=== PATIENT | male | born 1975 ===

== ENCOUNTER 2017-06-27 15:03 | Inpatient (IN) | payer OTHER ==
[~2017-06-27] VITALS: Ht 165.1 cm; Wt 90.7 kg
[~2017-06-27 15:03] MED LIST: LISINOPRIL2.5 MG; PERCOCET 5/3251 TAB PO; SMZ-TMP DS 800-1 TAB PO; TAMS0.4C PO; URETRON DS1 TAB PO
== END 2017-06-29 08:44 | disposition home or self-care (01) | DRG 699 ==
LOC: ER 15:03 → SEC-K 20:37 → SURG 06-28 18:33
PROVIDERS: Urology
PROC: BW21ZZZ Computerized Tomography (CT Scan) of Abdomen and Pelvis (ICD-10-PCS; 2017-06-27)
PROC: BT14ZZZ Fluoroscopy of Kidneys, Ureters and Bladder (ICD-10-PCS; 2017-06-28)
PROC: 0TJ98ZZ Inspection of Ureter, Via Natural or Artificial Opening Endoscopic (ICD-10-PCS; 2017-06-28)
PROC: 0TCB8ZZ Extirpation of Matter from Bladder, Via Natural or Artificial Opening Endoscopic (ICD-10-PCS; principal; 2017-06-28 21:15)
DX: N32.89 Other specified disorders of bladder (principal); N39.0 Urinary tract infection, site not specified; R33.8 Other retention of urine; R31.0 Gross hematuria

== ENCOUNTER 2017-08-02 10:28 | Outpatient (CLI) | payer OTHER | END 2017-08-02 10:31 | disposition home or self-care (01) | LOC: LAB 10:28 | DX: D68.8 Other specified coagulation defects (principal); N40.1 Benign prostatic hyperplasia with lower urinary tract symptoms; I10 Essential (primary) hypertension; N02.8 Recurrent and persistent hematuria with other morphologic changes; D50.0 Iron deficiency anemia secondary to blood loss (chronic); D51.8 Other vitamin B12 deficiency anemias ==

== ENCOUNTER 2017-08-31 11:14 | Outpatient (CLI) | payer OTHER | END 2017-08-31 17:15 | disposition home or self-care (01) | LOC: LAB 11:14 | DX: R31.0 Gross hematuria (principal); N40.1 Benign prostatic hyperplasia with lower urinary tract symptoms; R97.20 Elevated prostate specific antigen [PSA] ==

== ENCOUNTER 2017-08-31 14:09 | Outpatient (CLI) | payer OTHER | END 2017-08-31 14:15 | disposition home or self-care (01) | LOC: LAB 14:09 | DX: D68.8 Other specified coagulation defects (principal); D50.0 Iron deficiency anemia secondary to blood loss (chronic); N40.1 Benign prostatic hyperplasia with lower urinary tract symptoms; I10 Essential (primary) hypertension; N02.8 Recurrent and persistent hematuria with other morphologic changes; E56.1 Deficiency of vitamin K; D50.8 Other iron deficiency anemias; D51.8 Other vitamin B12 deficiency anemias; E03.8 Other specified hypothyroidism; D68.0 Von Willebrand disease ==

== ENCOUNTER 2018-02-11 11:11 | Outpatient (CLI) | payer OTHER | END 2018-02-11 11:13 | disposition home or self-care (01) | LOC: LAB 11:11 | DX: D51.1 Vitamin B12 deficiency anemia due to selective vitamin B12 malabsorption with proteinuria (principal); D68.0 Von Willebrand disease; D51.3 Other dietary vitamin B12 deficiency anemia; D50.0 Iron deficiency anemia secondary to blood loss (chronic); E56.1 Deficiency of vitamin K; N40.1 Benign prostatic hyperplasia with lower urinary tract symptoms; I10 Essential (primary) hypertension; N02.8 Recurrent and persistent hematuria with other morphologic changes; D50.8 Other iron deficiency anemias; D51.8 Other vitamin B12 deficiency anemias; D68.8 Other specified coagulation defects; R97.20 Elevated prostate specific antigen [PSA] ==

== ENCOUNTER 2018-06-24 09:51 | Outpatient (CLI) | payer OTHER | END 2018-06-24 17:37 | disposition home or self-care (01) | LOC: LAB 09:51 | DX: D51.1 Vitamin B12 deficiency anemia due to selective vitamin B12 malabsorption with proteinuria (principal); D68.0 Von Willebrand disease; D51.3 Other dietary vitamin B12 deficiency anemia; D50.0 Iron deficiency anemia secondary to blood loss (chronic); E56.1 Deficiency of vitamin K; N40.1 Benign prostatic hyperplasia with lower urinary tract symptoms; I10 Essential (primary) hypertension; N02.8 Recurrent and persistent hematuria with other morphologic changes; D50.8 Other iron deficiency anemias; D51.8 Other vitamin B12 deficiency anemias; D68.8 Other specified coagulation defects; R79.1 Abnormal coagulation profile ==

== ENCOUNTER 2018-08-01 09:27 | Outpatient (CLI) | payer OTHER | END 2018-08-01 12:23 | disposition home or self-care (01) | LOC: SONOGRAMA 09:27 | DX: R31.0 Gross hematuria (principal); N40.1 Benign prostatic hyperplasia with lower urinary tract symptoms ==

== ENCOUNTER 2019-09-15 10:34 | Outpatient (CLI) | payer OTHER | END 2019-09-15 10:52 | disposition home or self-care (01) | LOC: SONOGRAMA 10:34 | DX: R31.0 Gross hematuria (principal); N40.1 Benign prostatic hyperplasia with lower urinary tract symptoms ==

== ENCOUNTER 2021-11-24 14:06 | Outpatient (CLI) | payer OTHER | END 2021-11-24 14:21 | disposition home or self-care (01) | LOC: MRI 14:06 | DX: M25.561 Pain in right knee (principal); M67.461 Ganglion, right knee | CPT/HCPCS: 73718 ==

== ENCOUNTER 2021-11-29 07:11 | Outpatient (CLI) | payer OTHER | END 2021-11-29 07:12 | disposition home or self-care (01) | LOC: LAB 07:11 | PROVIDERS: ATTEND Internal Medicine | DX: D68.0 Von Willebrand disease (principal); D66 Hereditary factor VIII deficiency ==

== ENCOUNTER 2022-12-30 09:37 | Outpatient (CLI) | payer OTHER | END 2022-12-30 09:38 | disposition home or self-care (01) | LOC: LAB 09:37 | PROVIDERS: ATTEND Internal Medicine | DX: D66 Hereditary factor VIII deficiency (principal); E55.9 Vitamin D deficiency, unspecified ==

== ENCOUNTER 2023-02-08 14:50 | Outpatient (CLI) | payer OTHER | END 2023-02-08 14:52 | disposition home or self-care (01) | LOC: LAB 14:50 | PROVIDERS: ATTEND Urology | DX: N40.0 Benign prostatic hyperplasia without lower urinary tract symptoms (principal); R31.0 Gross hematuria ==